=== PATIENT | male | born 1960 | race Caucasian/White ===

== ENCOUNTER 2018-10-31 15:41 | Emergency (ER) | payer OTHER ==
[~2018-10-31] VITALS: Ht 180.3 cm; Wt 77.1 kg
[~2018-10-31 15:41] MED LIST: ALBU90OI INH; CYCL10 PO; FLUT44OIA INH; HYDACE10B PO; HYDACE5 PO; HYDCHL25 PO; Levaquin750 MG PO; MELO7.5 PO; NAPR500 PO; OXYACE5T PO; OXYC5 PO; Prednisone20 MG PO; RXCYCL10 PO; TRAM50 PO; blood pressure med
== END 2018-10-31 17:31 | disposition home or self-care (01) ==
LOC: ER 15:41
DX: S51.812A Laceration without foreign body of left forearm, initial encounter (principal); Y00.XXXA Assault by blunt object, initial encounter
CPT/HCPCS: 12002; 73030; 73090; 90471; 90714; 99283-25; J1885

== ENCOUNTER 2019-01-27 12:22 | Day surgery (SDC) | payer OTHER ==
[~2019-01-27] VITALS: Ht 185.4 cm; Wt 85.4 kg
[~2019-01-27 12:22] MED LIST changes: +TIZANIDINE HCL2 MG PO
--- NOTE | 2019-01-27 15:07 | NUR ---
01/27/19 [id number] Bairon Easley LATE ENTRY: PT PULLED HIS IV OUT AFTER PROCEDURE IS DONE. PRESSURE PLACED OVER IV SITE. PT HAS NO COMPLAINTS OVER THE IV SITE.
--- NOTE | 2019-01-27 15:10 | NUR ---
01/27/19 1510 Bairon Easley LATE ENTRY: AWARE OF PT'S HIGH BP POST PROCEDURE, OK TO DISCHARGE PATIENT HOME. PT DENIES ANY PAIN OR DISCOMFORT. PT EDUCATED WITH BP MONITORING AT HOME AND TO SPEAK WITH PRIMARY CARE DOCTOR ABOUT BP.
== END 2019-01-27 14:30 | disposition home or self-care (01) ==
LOC: ORSCSDS 12:22
PROVIDERS: Student in an Organized Health Care Education/Training Program
PROC: 0DBM8ZX Excision of Descending Colon, Via Natural or Artificial Opening Endoscopic, Diagnostic (ICD-10-PCS; principal; 2019-01-27 14:00)
PROC: 0DBL8ZX Excision of Transverse Colon, Via Natural or Artificial Opening Endoscopic, Diagnostic (ICD-10-PCS; principal; 2019-01-27 14:00)
PROC: 0DBN8ZX Excision of Sigmoid Colon, Via Natural or Artificial Opening Endoscopic, Diagnostic (ICD-10-PCS; principal; 2019-01-27 14:00)
PROC: 0DBK8ZX Excision of Ascending Colon, Via Natural or Artificial Opening Endoscopic, Diagnostic (ICD-10-PCS; principal; 2019-01-27 14:00)
PROC: 0DB58ZX Excision of Esophagus, Via Natural or Artificial Opening Endoscopic, Diagnostic (ICD-10-PCS; principal; 2019-01-27 14:00)
PROC: 0DB68ZX Excision of Stomach, Via Natural or Artificial Opening Endoscopic, Diagnostic (ICD-10-PCS; principal; 2019-01-27 14:00)
DX: K92.1 Melena (principal); K21.9 Gastro-esophageal reflux disease without esophagitis; K29.70 Gastritis, unspecified, without bleeding; K20.9 Esophagitis, unspecified; B19.20 Unspecified viral hepatitis C without hepatic coma; D12.5 Benign neoplasm of sigmoid colon; D12.3 Benign neoplasm of transverse colon; D12.2 Benign neoplasm of ascending colon; D12.4 Benign neoplasm of descending colon; J45.909 Unspecified asthma, uncomplicated; F17.210 Nicotine dependence, cigarettes, uncomplicated
CPT/HCPCS: 88305; 88342; J2704; J7120

== ENCOUNTER 2020-07-24 10:09 | Day surgery (SDC) | payer OTHER | END 2020-07-24 14:00 | disposition home or self-care (01) | LOC: ORSCSDS 10:09 | PROC: 0DBH8ZX Excision of Cecum, Via Natural or Artificial Opening Endoscopic, Diagnostic (ICD-10-PCS; principal; 2020-07-24) | PROC: 0DBP8ZX Excision of Rectum, Via Natural or Artificial Opening Endoscopic, Diagnostic (ICD-10-PCS; principal; 2020-07-24) | PROC: 0DBK8ZX Excision of Ascending Colon, Via Natural or Artificial Opening Endoscopic, Diagnostic (ICD-10-PCS; principal; 2020-07-24) | DX: Z12.11 Encounter for screening for malignant neoplasm of colon (principal); Z86.010 Personal history of colon polyps; D12.0 Benign neoplasm of cecum; D12.2 Benign neoplasm of ascending colon; K62.1 Rectal polyp; K64.8 Other hemorrhoids; K64.4 Residual hemorrhoidal skin tags; F17.210 Nicotine dependence, cigarettes, uncomplicated; K74.60 Unspecified cirrhosis of liver; Z79.899 Other long term (current) drug therapy ==

== ENCOUNTER 2021-10-23 07:47 | Emergency (ER) | payer OTHER ==
[~2021-10-23] VITALS: Ht 172.7 cm; Wt 81.7 kg
[~2021-10-23 07:47] MED LIST changes: +ALBU8HFA2 INH; +ATOR20 PO; +MIRALAX17 GM PO; +OMEP20ER PO; +PSEUDOEPHEDRINE30 MG PO; +ZYRTEC10 M2 PO
[2021-10-23] MEDS ORDERED: FLUT.05NI (08:12)
[2021-10-23] MEDS ORDERED: MONT4 (08:13)
[2021-10-23] MEDS ORDERED: Lisinopril2.5 MG (08:13)
[2021-10-23] MEDS ORDERED: LOW DOSE ASPIRI81 M1 (08:13)
[2021-10-23] MEDS ORDERED: CYCL10 PO (08:13)
[2021-10-23] MEDS ORDERED: NAPR500 PO (08:43)
== END 2021-10-23 09:14 | disposition home or self-care (01) ==
LOC: ER 07:47
DX: S50.02XA Contusion of left elbow, initial encounter (principal); J44.9 Chronic obstructive pulmonary disease, unspecified; I10 Essential (primary) hypertension; F17.210 Nicotine dependence, cigarettes, uncomplicated; Z91.013 Allergy to seafood; Z91.048 Other nonmedicinal substance allergy status; Z79.899 Other long term (current) drug therapy; W18.30XA Fall on same level, unspecified, initial encounter
CPT/HCPCS: 73060; 73080; 99283-25

== ENCOUNTER 2022-01-24 18:01 | Emergency (ER) | payer OTHER ==
[~2022-01-24] VITALS: Ht 180.3 cm; Wt 87.1 kg
[~2022-01-24 18:01] MED LIST changes: +FLUT.05NI; +LOW DOSE ASPIRI81 M1; +Lisinopril2.5 MG; +MONT4
== END 2022-01-24 20:08 | disposition home or self-care (01) ==
LOC: ER 18:01
DX: S06.9X1A Unspecified intracranial injury with loss of consciousness of 30 minutes or less, initial encounter (principal); S01.01XA Laceration without foreign body of scalp, initial encounter; J44.9 Chronic obstructive pulmonary disease, unspecified; I10 Essential (primary) hypertension; F17.210 Nicotine dependence, cigarettes, uncomplicated; W01.0XXA Fall on same level from slipping, tripping and stumbling without subsequent striking against object, initial encounter
CPT/HCPCS: 12001; 70450; 99284-25

== ENCOUNTER 2022-02-19 09:47 | Emergency (ER) | payer OTHER ==
[~2022-02-19] VITALS: Ht 185.4 cm; Wt 81.7 kg
== END 2022-02-19 10:58 | disposition home or self-care (01) ==
LOC: ER 09:47
DX: T81.72XA Complication of vein following a procedure, not elsewhere classified, initial encounter (principal); F07.81 Postconcussional syndrome; J44.9 Chronic obstructive pulmonary disease, unspecified; I10 Essential (primary) hypertension; F17.200 Nicotine dependence, unspecified, uncomplicated; Z91.013 Allergy to seafood; Z91.048 Other nonmedicinal substance allergy status; Z79.899 Other long term (current) drug therapy
CPT/HCPCS: 99282

== ENCOUNTER 2023-03-28 10:26 | Emergency (ER) | payer OTHER ==
[~2023-03-28] VITALS: Ht 180.3 cm; Wt 90.7 kg
[2023-03-28 10:33] VITALS: BP 127/87
== END 2023-03-28 11:25 | disposition home or self-care (01) ==
LOC: ER 10:26
DX: S60.454A Superficial foreign body of right ring finger, initial encounter (principal); J44.9 Chronic obstructive pulmonary disease, unspecified; I10 Essential (primary) hypertension; B18.2 Chronic viral hepatitis C; F17.200 Nicotine dependence, unspecified, uncomplicated; Z91.041 Radiographic dye allergy status; Z91.013 Allergy to seafood; Z79.82 Long term (current) use of aspirin; Z79.899 Other long term (current) drug therapy; W45.8XXA Other foreign body or object entering through skin, initial encounter
CPT/HCPCS: 99283

== ENCOUNTER → 2024-10-25 | Outpatient (CLI) | payer OTHER ==
[~2024-10-25] MED LIST changes: +LISI20 PO; +MONT10T PO; +NEURONTIN300 MG PO; +Norco 5-325 Ta1 EACH
[2024-10-25 17:05] LABS: Microalb/Creat Ratio UR, Rand 13.368 mg/g (0.000-30.000); Microalbumin, Random Urine 25.4 mg/L (0.000-20.000)
== END ==
LOC: LAB SHORT 15:09 → LAB 15:09
PROVIDERS: Family Medicine
DX: E11.9 Type 2 diabetes mellitus without complications (principal)
CPT/HCPCS: 82043; 82570

== ENCOUNTER → 2025-06-14 | Outpatient (CLI) | payer OTHER ==
[2025-06-14 18:47] LABS: BASOPHILS ABSOLUTE AUTO 0.06 K/mm3 (0.00-0.23); BASOPHILS PERCENT AUTO 1 % (0-2); EOSINOPHILS ABSOLUTE AUTO 0.14 K/mm3 (0.00-0.68); EOSINOPHILS PERCENT AUTO 2 % (0-6); Hematocrit 48.1 % (37.0-53.0); Hemoglobin 16.0 g/dL (13.5-17.5); IMMATURE GRAN ABSOLUTE AUTO 0.00 K/mm3 (0.00-0.10); IMMATURE GRAN PERCENT AUTO 0 % (0-1); LYMPHOCYTES ABSOLUTE AUTO 2.46 K/mm3 (0.84-5.20); LYMPHOCYTES PERCENT AUTO 41 % (21-46); MONOCYTES ABSOLUTE AUTO 0.46 K/mm3 (0.16-1.47); MONOCYTES PERCENT AUTO 8 % (4-13); Mean Corpuscular HGB Conc 33.3 g/dL (31.5-36.5); Mean Corpuscular Volume 96 fL (80-100); NEUTROPHILS ABSOLUTE AUTO 2.88 K/mm3 (1.96-9.15); NEUTROPHILS PERCENT AUTO 48 % (41-73); NRBC ABSOLUTE 0.00 K/mm3 (0.00-0.02); NRBC Auto 0.0 /100 WBC (0.0-0.2); Platelet Count 172 K/mm3 (150-400); RDW Coefficient Variation 13.3 % (11.7-14.2); RDW Standard Deviation 47.4 fL (35.1-46.3)
== END ==
LOC: LAB SHORT 17:44 → LAB 17:44
PROVIDERS: Family Medicine
DX: I10 Essential (primary) hypertension (principal); R73.03 Prediabetes
CPT/HCPCS: 83036; 85025